=== PATIENT | female | born 1955 | race Caucasian/White ===

== ENCOUNTER 2016-11-21 20:50 | Emergency (ER) | payer OTHER ==
[~2016-11-21] VITALS: Ht 152.4 cm; Wt 84.0 kg
[2016-11-21] MEDS ORDERED: IBUP-1114 PO (21:09)
[2016-11-21] MEDS ORDERED: OMEP20CA3 (21:09)
[2016-11-21] MEDS ORDERED: ASPI81TA85 PO (21:09)
[2016-11-21] MEDS ORDERED: ESCI10TA2 (21:09)
[2016-11-21] MEDS ORDERED: AMOX500C PO (21:09)
[2016-11-21] MEDS ORDERED: RAMI10CA (21:09)
[2016-11-22] MEDS ORDERED: CLINDAMYCIN 600 MG in APPROPRIATE DILUENT 1 EA IV ONE ×2
[2016-11-22 00:39] LABS: BASO % 0.5 % (0.0-1.0); EOS # 0.3 K/mm3 (0.0-0.50); EOS % 2.8 % (0.0-3.0); LARGE UNSTAINED CELL # 0.2 K/mm3 (0.0-0.4); LARGE UNSTAINED CELL % 1.6 % (0.0-4.0); LYMPH # 2.6 K/mm3 (1.5-4.5); LYMPH % 27.5 % (24.0-44.0); MEAN CORPUSCULAR HGB CONC 35.1 g/dl (32.0-36.5); MEAN CORPUSCULAR VOLUME 91.1 fl (80.0-96.0); MONO # 0.6 K/mm3 (0.0-0.8); MONO % 6.1 % (0.0-5.0); NEUTROPHILS # 5.9 K/mm3 (1.8-7.7); NEUTROPHILS % 61.5 % (36.0-66.0); PLATELET COUNT, AUTOMATED 276 k/mm3 (150-450); RED CELL DISTRIBUTION WIDTH 13.4 % (11.5-14.5); WHITE BLOOD COUNT 9.6 K/mm3 (4.0-10.0)
[2016-11-22 00:43] LABS: CALCIUM LEVEL 8.6 MG/DL (8.8-10.2); CHLORIDE LEVEL 109 MEQ/L (98-107); CREATININE FOR GFR 0.71 MG/DL (0.55-1.02); GLUCOSE, FASTING 136 MG/DL (80-110); POTASSIUM SERUM 4.1 MEQ/L (3.5-5.1); SODIUM LEVEL 141 MEQ/L (136-145)
[2016-11-22 00:57] LABS: ERYTHROCYTE SEDIMENTATION RATE 51 mm/hr (0-30)
[2016-11-22 01:03] LABS: BLOOD UREA NITROGEN 13 MG/DL (7-18)
[2016-11-22] MEDS ORDERED: ISOVUE-370 76% 100ML VIAL (Q9967) As Ordered ONE (01:05)
--- NOTE | 2016-11-22 01:50 | REPUSA ---
CLINICAL HISTORY: Left perimandibular stranding and edema. TECHNIQUE: Multiple axial CT images were obtained through the neck with IV contrast material. MPR cor onal and sagittal sequences were obtained. COMMENTS: Left perimandibular subcutaneous fat stranding and edema. Associated abnormal enhancement. Adjacent left submandibular lymphadenopathy. Diffuse cervical lymphadenopathy. Largest lymph node measures 1.3 cm. The oropharyngeal soft tissues are normal and bilaterally symmetric. The piriform sinuses are normal. There is no supra or infraglottic laryngeal mass. The proximal trachea is normal. There is no paravertebral soft tissue mass. The salivary glands are normal. The paravertebral soft tissue space is normal. Limited images through the posterior fossa demonstrate no evidence for tonsilar herniation. Evaluation of the visualized lung apices reveals no evidence for abnormality. IMPRESSION: Left submandibular cellulitis. Associated lymphadenopathy. Thank you for your kind referral of this patient.
[2016-11-22] MEDS ORDERED: NORCOTAB PO (01:53)
[2016-11-22] MEDS ORDERED: CLEO300C2 PO (01:53)
[2016-11-22] MEDS ORDERED: NORCO 5/325MG TABLET (BULK FOR ED) PO ONE (02:00)
[2016-11-22 02:12] VITALS: BP 151/100
[2016-11-22 03:57] LABS: ANION GAP 7 MEQ/L (8-16); CARBON DIOXIDE LEVEL 25 MEQ/L (21-32)
== END 2016-11-22 02:13 | disposition home or self-care (01) ==
LOC: M ED 20:50
DX: L03.211 Cellulitis of face (principal)
CPT/HCPCS: 70491; 80048; 85025; 85652; 86140; 96365; 99283; Q9967

== ENCOUNTER → 2019-06-23 | Outpatient (CLI) | payer OTHER ==
[~2019-06-23] MED LIST: AMOX500C PO; ASPI81TA85 PO; CLEO300C2 PO; ESCI10TA2; HYDR-3715 PO; IBUP-1114 PO; OMEP1CAP73; RAMI1CAP26
[2019-06-23 13:23] LABS: ALT/SGPT 22 U/L (12-78); CHOLESTEROL LEVEL 236 MG/DL (<200); CHOLESTEROL RISK RATIO 5.363 (<5); CPK CREATINE PHOSPHOKINASE 101 U/L (26-192); HDL CHOLESTEROL 44 MG/DL (>40); NON-HDL-C 192 MG/DL; TRIGLYCERIDES LEVEL 603 MG/DL (<150)
[2019-06-25 08:06] LABS: LDL DIRECT 82 mg/dL (0-99)
== END ==
LOC: M WUC 09:58
PROVIDERS: ATTEND Internal Medicine Cardiovascular Disease
DX: E78.2 Mixed hyperlipidemia (principal)

== ENCOUNTER → 2019-08-28 | Outpatient (CLI) | payer OTHER ==
[2019-08-28 16:48] LABS: BLOOD UREA NITROGEN 19 MG/DL (7-18); CALCIUM LEVEL 9.9 MG/DL (8.8-10.2); CARBON DIOXIDE LEVEL 27 MEQ/L (21-32); CHLORIDE LEVEL 110 MEQ/L (98-107); CREATININE FOR GFR 0.66 MG/DL (0.55-1.30); GLOMERULAR FILTRATION RATE > 60.0 (>45); GLUCOSE, FASTING 105 MG/DL (70-100); POTASSIUM SERUM 4.5 MEQ/L (3.5-5.1); SODIUM LEVEL 143 MEQ/L (136-145)
== END ==
LOC: M WUC 11:38
PROVIDERS: ATTEND Internal Medicine Cardiovascular Disease
DX: R07.9 Chest pain, unspecified (principal); R06.02 Shortness of breath

== ENCOUNTER → 2024-06-12 | Outpatient (CLI) | payer OTHER, MEDICARE ==
[~2024-06-12] MED LIST changes: -ASPI81TA85 PO; +ASPI81TA86 PO; +ESCI10TA16; -ESCI10TA2; +RAMI10CA64; -RAMI1CAP26
[2024-06-12 11:30] LABS: BASO # 0.1 10^3/uL (0.0-0.2); BASO % 0.8 % (0.0-1.0); EOS # 0.3 10^3/uL (0.0-0.5); EOS % 4.6 % (0.0-3.0); HEMATOCRIT 35.5 % (36.0-47.0); HEMOGLOBIN 11.8 g/dl (12.0-15.5); LYMPH # 2.3 10^3/uL (1.5-5.0); LYMPH % 32.6 % (24.0-44.0); MEAN CORPUSCULAR HEMOGLOBIN 31.6 pg (27.0-33.0); MEAN CORPUSCULAR HGB CONC 33.2 g/dl (32.0-36.5); MEAN CORPUSCULAR VOLUME 95.2 fl (80.0-96.0); MONO # 0.5 10^3/uL (0.0-0.8); MONO % 7.1 % (2.0-8.0); NEUTROPHILS # 3.9 10^3/uL (1.5-8.5); NEUTROPHILS % 54.6 % (36.0-66.0); PLATELET COUNT, AUTOMATED 333 10^3/uL (150-450); RED BLOOD COUNT 3.73 10^6/uL (4.00-5.40)
[2024-06-12 11:47] LABS: HEMOGLOBIN A1c 5.9 % (4.0-6.0)
[2024-06-12 12:00] LABS: ALBUMIN 3.8 G/DL (3.2-5.2); ALKALINE PHOSPHATASE 68 U/L (35-104); ALT/SGPT 25 U/L (7.0-40); AST/SGOT 19 U/L (<34); BILIRUBIN,TOTAL 0.2 MG/DL (0.3-1.2); BLOOD UREA NITROGEN 15 MG/DL (9-23); CALCIUM LEVEL 9.8 MG/DL (8.3-10.6); CARBON DIOXIDE LEVEL 27 MMOL/L (20-31); CHLORIDE LEVEL 107 MMOL/L (98-107); CREATININE FOR GFR 0.68 MG/DL (0.55-1.30); GLOMERULAR FILTRATION RATE > 60.0 (>45); GLUCOSE, FASTING 104 MG/DL (74-106); POTASSIUM SERUM 4.2 MMOL/L (3.5-5.1); SODIUM LEVEL 145 MMOL/L (136-145); TOTAL PROTEIN 6.8 G/DL (5.7-8.2)
[2024-06-13 06:58] LABS: WHITE BLOOD COUNT 7.2 10^3/uL (4.0-10.0)
== END ==
LOC: M LAB 09:31
PROVIDERS: ATTEND Family Medicine
DX: E11.9 Type 2 diabetes mellitus without complications (principal); E78.2 Mixed hyperlipidemia; I10 Essential (primary) hypertension

== ENCOUNTER → 2024-06-12 | Outpatient (REF) | LOC: M LAB 09:28 | PROVIDERS: ATTEND Family Medicine | DX: Z02.1 Encounter for pre-employment examination (principal) ==

== ENCOUNTER → 2024-10-30 | Outpatient (CLI) | payer MEDICARE, OTHER | LOC: M SOG 08:46 | PROVIDERS: ATTEND Neuromusculoskeletal Medicine, Sports Medicine | DX: M25.512 Pain in left shoulder (principal) ==

== ENCOUNTER → 2024-12-11 | Outpatient (CLI) | payer MEDICARE, OTHER | LOC: M SOG 07:09 | PROVIDERS: ATTEND Neuromusculoskeletal Medicine, Sports Medicine | DX: M25.512 Pain in left shoulder (principal) ==